=== PATIENT | female | born 1940 | race Caucasian/White ===

== ENCOUNTER 2022-09-06 11:24 | Emergency (ER) | payer BC, MEDICARE ==
[2022-09-06] MEDS ORDERED: Lidocaine 1% with EPINEPHrine 1:100,000 50 ML MDV INFILT ONE (11:30)
== END 2022-09-06 12:01 | disposition home or self-care (01) ==
LOC: LB.ED 11:24
DX: S01.81XA Laceration without foreign body of other part of head, initial encounter (principal); W19.XXXA Unspecified fall, initial encounter; Z88.2 Allergy status to sulfonamides
CPT/HCPCS: 12011; 99282